=== PATIENT | male | born 1975 | race Caucasian/White ===

== ENCOUNTER 2021-04-27 19:17 | Emergency (ER) | payer OTHER ==
[2021-04-27 19:24] VITALS: BP 153/79; PULSE 90; TEMP 98.1; BMI 27.9
== END 2021-04-27 20:57 | disposition home or self-care (01) ==
LOC: JER 19:17 → JERFT 19:17
DX: B34.9 Viral infection, unspecified (principal)
CPT/HCPCS: 99283-25; C9803; U0003; U0005